=== PATIENT | male | born 1950 | race Caucasian/White ===

== ENCOUNTER → 2016-09-24 | Outpatient (CLI) | payer MEDICARE, OTHER | END | disposition home or self-care (01) | LOC: CFH 10:24 | PROVIDERS: ATTEND Physician Assistant Surgical | DX: S42.242A 4-part fracture of surgical neck of left humerus, initial encounter for closed fracture (principal); X58.XXXA Exposure to other specified factors, initial encounter; Y93.89 Activity, other specified; Y92.89 Other specified places as the place of occurrence of the external cause; Y99.8 Other external cause status ==

== ENCOUNTER → 2017-04-25 | Outpatient (CLI) | payer MEDICARE, OTHER | END | disposition home or self-care (01) | LOC: CVU 09:50 | PROVIDERS: ATTEND Podiatrist Foot & Ankle Surgery | DX: I65.02 Occlusion and stenosis of left vertebral artery (principal); I63.9 Cerebral infarction, unspecified | CPT/HCPCS: 93880 ==

== ENCOUNTER 2019-04-07 07:03 | Outpatient (CLI) | payer MEDICARE, OTHER ==
[2019-04-07] MEDS ORDERED: REGADENOSON 0.4 MG/5 ML SYRINGE ONE (07:36)
[2019-04-08] MEDS ORDERED: REGADENOSON 0.4 MG/5 ML SYRINGE ONE (07:32)
== END 2019-04-07 23:59 | disposition home or self-care (01) ==
LOC: CVU 07:03 → CFH 23:59
PROVIDERS: ATTEND Internal Medicine Cardiovascular Disease
DX: I08.3 Combined rheumatic disorders of mitral, aortic and tricuspid valves (principal); I21.09 ST elevation (STEMI) myocardial infarction involving other coronary artery of anterior wall; E78.5 Hyperlipidemia, unspecified; I63.9 Cerebral infarction, unspecified; I86.8 Varicose veins of other specified sites
CPT/HCPCS: 78452; 93017; A9502; C8929; J2785; Q9957

== ENCOUNTER 2019-05-05 08:11 | Outpatient (CLI) | payer MEDICARE, OTHER | END 2019-05-05 23:59 | disposition home or self-care (01) | LOC: CFH 08:11 | PROVIDERS: ATTEND Internal Medicine Cardiovascular Disease | DX: K76.0 Fatty (change of) liver, not elsewhere classified (principal); R93.1 Abnormal findings on diagnostic imaging of heart and coronary circulation | CPT/HCPCS: 76700 ==

== ENCOUNTER 2020-09-27 13:41 | Outpatient (CLI) | payer MEDICARE, OTHER | END 2020-09-27 23:59 | disposition home or self-care (01) | LOC: CVU 13:41 | PROVIDERS: ATTEND Internal Medicine Cardiovascular Disease | DX: I08.2 Rheumatic disorders of both aortic and tricuspid valves (principal); I65.21 Occlusion and stenosis of right carotid artery; I63.9 Cerebral infarction, unspecified; R07.9 Chest pain, unspecified | CPT/HCPCS: 93880; C8929; Q9957 ==